=== PATIENT | female | born 1965 | race Caucasian/White ===

== ENCOUNTER 2020-01-24 00:56 | Inpatient (IN) | payer BC ==
[2020-01-24] VITALS (18 sets, daily range): BP systolic 102–118; BP diastolic 56–79
[~2020-01-24] VITALS: Ht 165.1 cm; Wt 85.6 kg
[2020-01-24] MEDS ORDERED: aspirin 81mg tab.chew PO ONE (01:00)
[2020-01-24] MEDS: amiodarone/D5 360MG/200ML BAG 200 ML IV SCH ×4 (01:06→16:13)
--- NOTE | 2020-01-24 01:08 | NUR ---
PT DESATED TO 80% RA, PT PLACED ON NRB AT 10 L. O2 SAT UP TP 100%
[2020-01-24 01:21] LABS: BASOPHILS # (AUTO) 0.1 X10'3 (0-0.2); LYMPHOCYTES # (AUTO) 0.9 X10'3 (1.1-4.8); MEAN PLATELET VOLUME 8.8 FL (7.4-10.4)
[2020-01-24 01:23] LABS: BASOPHILS % (AUTO) 0.4 % (0-1); EOSINOPHILS % (AUTO) 0.1 % (0-6); HEMATOCRIT 42.8 % (35.0-45.0); HEMOGLOBIN 14.6 g/dl (12.0-16.0); LYMPHOCYTES % (AUTO) 6.5 % (21-51); MEAN CORPUSCULAR HEMOGLOBIN 31.9 PG (27.0-31.0); MEAN CORPUSCULAR HGB CONC 34.1 g/dL (33.0-36.5); MEAN CORPUSCULAR VOLUME 93.6 FL (78-98); MONOCYTES # (AUTO) 0.5 X10'3 (0-0.9); MONOCYTES % (AUTO) 3.5 % (2-12); NEUTROPHILS # (AUTO) 12.9 X10'3 (1.8-7.7); NEUTROPHILS % (AUTO) 89.5 % (42-75); PLATELET COUNT 247 X10'3 (140-440); RED BLOOD COUNT 4.57 X10'6 (4.20-5.60); RED CELL DISTRIBUTION WIDTH 13.2 % (11.5-14.5); WHITE BLOOD COUNT 14.4 X10'3 (4.5-11.0)
[2020-01-24] MEDS ORDERED: aspirin 300mg supp.rect RC ONE (01:25)
--- NOTE | 2020-01-24 01:27 | NUR ---
DUDLEY JOHANSEN AT . PT IS NOW ALERT AND ANSWERING QUESTIONS AND FOLLOWING COMMANDS. PT DESCIBING CP STABBING IN MID CHEST TO BACK
[2020-01-24] MEDS ORDERED: iohexol 350MG/ML 100ml bottle IV ONE ×2 (01:37→13:01)
[2020-01-24 01:47] LABS: CLARITY,URINE CLEAR (Clear); COLOR,URINE YELLOW (Yellow); GLUCOSE, URINE 100 mg/dl (Neg); KETONES,URINE NEGATIVE (Neg); LEUKOCYTE ESTERASE ,URINE NEGATIVE (Neg); NITRITES, URINE NEGATIVE (Neg); OCCULT BLOOD,URINE LARGE (Neg); PROTEIN,URINE 100 mg/dl (Neg); UROBILINOGEN,URINE 0.2 E.U/dL (0.2-1.0)
[2020-01-24 01:51] LABS: UA COLLECTION TYPE CLN CATCH MIDSTREAM
[2020-01-24 01:52] LABS: BACTERIA,URINE FEW /HPF (Neg); SQUAMOUS EPITHELIAL CELL,UR FEW /LPF (FEW); WBC,URINE 0-4 /HPF (0-4)
[2020-01-24] MEDS ORDERED: morphine 4 MG/ML inj SYRINge IV ONE (02:00)
--- NOTE | 2020-01-24 02:00 | NUR ---
PT O2 SAT 100% ON 15 L. O2 DECREASED TO 10L. WILL CONTINUE TO WEAN
--- NOTE | 2020-01-24 02:23 | NUR ---
PT BACK FROM HEAD CT. PT RESTING AND STATES THAT PAIN IS MORE MANAGEABLE. PT O2 SAT 100% ON 10L, REDUCED O2 TO 8 L NRB. WILL CONTINUE TO WEAN
--- NOTE | 2020-01-24 03:05 | NUR ---
PT SATS AT 100% ON 8 L NRB. DECREASED 02 TO 5 L NC AND CURRENTLY STILL AT 100%. WILL CONTINUE TO MONITOR AND WEAN O2
[2020-01-24 03:19] LABS: URINE AMPHETAMINE SCREEN NEGATIVE (Neg); URINE BARBITUATE SCREEN NEGATIVE (Neg); URINE BENZODIAZEPINES SCREEN POSITIVE (Neg); URINE CANNABINOID SCREEN NEGATIVE (Neg); URINE COCAINE SCREEN NEGATIVE (Neg); URINE METHADONE SCREEN NEGATIVE (Neg); URINE OPIATE SCREEN NEGATIVE (Neg); URINE PHENCYCLIDINE SCREEN NEGATIVE (Neg)
[2020-01-24] MEDS ORDERED: heparin 25,000 UNIT/250ml bag 250 ML IV SCH ×2 (03:21→04:23)
[2020-01-24] MEDS ORDERED: heparin 10,000 units/1 ML INJ IV PRN ×2 (03:25→06:00)
[2020-01-24] MEDS ORDERED: heparin 10,000 units/1 ML INJ IV ONE ×2 (03:25)
--- NOTE | 2020-01-24 03:25 | NUR ---
AWAITING PTT RESULTS TO START HEPARIN MEDICATIONS Addendum: 01/24/20 at 0547 by BERENICE PER FRANCISCO FREIRE AT BS, HOLD HEPARIN UNTIL PTT VALUE
[2020-01-24 03:26] LABS: ISTAT CREATININE 0.9 mg/dL (0.6-1.1); ISTAT HGB 14.3 g/dl (12.0-16.0); ISTAT IONIZED CALCIUM 1.16 mmol/L (1.03-1.32); ISTAT K 3.2 mmol/L (3.5-5.1); POC BUN/CREATININE RATIO 13.3 (6.6-38.0)
--- NOTE | 2020-01-24 03:55 | NUR ---
daughter tootie martinor: phone [phone]
[2020-01-24 03:56] LABS: ALANINE AMINOTRANSFERASE 232 U/L (12-78); ALBUMIN 3.5 G/DL (3.4-5.0); ALBUMIN/GLOBULIN RATIO 1.2 (1.1-1.5); ALKALINE PHOSPHATASE 90 IU/L (46-116); ANION GAP 12 (8-16); ASPARTATE AMINO TRANSFERASE 291 U/L (10-37); BILIRUBIN,TOTAL 0.4 MG/DL (0.1-1.0); BLOOD UREA NITROGEN 13 MG/DL (7-18); BUN/CREATININE RATIO 13.4 (6.6-38.0); CALCIUM 8.1 MG/DL (8.5-10.1); CHLORIDE 103 MMOL/L (99-107); CREATININE 0.97 MG/DL (0.40-0.90); ETHANOL < 0.010 GM/DL (0.0-0.010); GLUCOSE 164 MG/DL (70-104); MAGNESIUM 1.7 MG/DL (1.5-2.4); POTASSIUM 3.2 MMOL/L (3.5-5.1); SODIUM 138 MMOL/L (135-145); TOTAL CARBON DIOXIDE 23.3 MMOL/L (24-32); TOTAL PROTEIN 6.5 G/DL (6.4-8.2); eGFR 59 ML/MIN
[2020-01-24] MEDS: normal saline 1000ml 1,000 ML IV SCH ×2 (04:23→17:56)
[2020-01-24] MEDS ORDERED: acetaminophen 650mg rectal suppository RC PRN (04:25)
[2020-01-24] MEDS ORDERED: nitroGLYCERIN 0.4mg SUBLingual tab SL PRN (04:25)
[2020-01-24] MEDS ORDERED: acetaminophen 325mg tablet PO PRN (04:25)
[2020-01-24] MEDS ORDERED: magnesium hydroxide 30ml (MOM) UD suspension PO PRN (04:25)
[2020-01-24] MEDS ORDERED: magnesium 4gm in 100ml NS 100 ML IV PRN (04:25)
[2020-01-24] MEDS ORDERED: magnesium 2GM in 50ml NS 50 ML IV PRN (04:25)
[2020-01-24] MEDS ORDERED: ipratropium/albuterol 3ml nebule NEB PRN (04:25)
--- NOTE | 2020-01-24 04:30 | NUR ---
CENTRAL LINE PLACED, PT TOLERATED WELL. PT REPEATING SAME QUESTIONS, SHORT TERM MEMORY IS LACKING. PT KNOWN BIRTHDATE, HOME ADDRESS, DAUGHTERS NAME.
--- NOTE | 2020-01-24 05:15 | NUR ---
PTT VALUE GREATER THAN 137. 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 HOLD HEPARIN, REDRAW PTT
[2020-01-24 05:20] LABS: HEMOGLOBIN A1C 6.3 % (4.5-6.2)
[2020-01-24 05:28] LABS: CHOL/HDL RATIO 4.5 (0.00-4.99); CHOLESTEROL 186 MG/DL (0-200); HDL CHOLESTEROL 41 MG/DL (35-60); LDL CHOLESTEROL 113 MG/DL (50-100); TRIGLYCERIDES 109 MG/DL (20-135)
--- NOTE | 2020-01-24 06:53 | NUR ---
REPORTED LACTIC 5.4 TO JULY TIRE MAINTENANCE TECHNICIAN.ORDERED TO REPEAT LACTIC.
--- NOTE | 2020-01-24 07:12 | NUR ---
DR. DE LA CRUZ AT BEDSIDE,ORDERED REPEAT EKG.
--- NOTE | 2020-01-24 07:13 | NUR ---
600 URINE OUT FROM CATHETER.
--- NOTE | 2020-01-24 07:16 | NUR ---
DR. DE LA CRUZ TALKING TO APPRENTICE COSMETOLOGIST ON THE PHONE.
[2020-01-24] MEDS: morphine 4 MG/ML inj SYRINge IV PRN (07:22)
[2020-01-24] MEDS: docusate sod 100mg capsule PO SCH ×2 (08:00→20:51)
[2020-01-24] MEDS: lisinopril 5mg tablet PO SCH (08:00)
[2020-01-24] MEDS: aspirin 81mg tab.chew PO SCH (08:00)
[2020-01-24] MEDS: carVEDilol 3.125mg tablet PO SCH ×2 (08:00→20:00)
--- NOTE | 2020-01-24 08:00 | NUR ---
Pt arrived from ED. Pt transferred to bed from [facility]. Pt oriented to room and function of call system. Pt is A&O, but repeats questions.
[2020-01-24] MEDS: pantoprazole 40 MG vial IV SCH (08:15)
--- NOTE | 2020-01-24 09:08 | NUR ---
Echo being done
[2020-01-24] MEDS ORDERED: iohexol 350 MG/1 ML 200ml bottle ONE (11:53)
[2020-01-24] MEDS ORDERED: fentaNYL/PF 50MCG/1 ML 2ML syringe ONE ×2 (11:53→12:51)
[2020-01-24] MEDS ORDERED: LIDOcaine 1% (10mg/ml)w/preservative injection 20ml MDV ONE (11:53)
[2020-01-24] MEDS ORDERED: heparin 1,000unit/ml 10ml vial 10 ML ONE (11:53)
[2020-01-24] MEDS ORDERED: midazolam 2 mg/2 ml injection ONE ×2 (11:53→12:51)
[2020-01-24] MEDS ORDERED: verapamil 2.5 mg/ml inj IV ONE (12:00)
[2020-01-24] MEDS ORDERED: nitroGLYCERIN-Tridil 50MG/D5W 250 ML IV ONE (12:00)
--- NOTE | 2020-01-24 12:19 | NUR ---
PT to laborer salvage
[2020-01-24] MEDS ORDERED: LEVO100T PO ×2 (12:24→12:38)
[2020-01-24] MEDS ORDERED: LOSA100T57 PO ×2 (12:26→12:38)
[2020-01-24] MEDS ORDERED: CYCL-394 PO ×2 (12:27→12:38)
[2020-01-24] MEDS ORDERED: BENZONATATE PO (12:32)
[2020-01-24] MEDS ORDERED: OXYC-150 PO ×2 (12:34→12:38)
--- NOTE | 2020-01-24 13:28 | NUR ---
pt still in manufacturing lab technician
[2020-01-24] MEDS ORDERED: ticagrelor 90mg tablet ONE (13:33)
--- NOTE | 2020-01-24 14:19 | NUR ---
pt returned from label operator. pt orders reviewed and faxed to pharmacy and lab.
--- NOTE | 2020-01-24 15:15 | NUR ---
Release of air from [employer] initiated
[2020-01-24] MEDS ORDERED: proCHLORperazine 10 MG/2 ml inj IV PRN (15:20)
[2020-01-24] MEDS ORDERED: HYDROcodone/acetaminophen 5mg/325mg tablet PO PRN (15:20)
[2020-01-24] MEDS ORDERED: OXAZEpam 15mg capsule PO PRN (15:20)
[2020-01-24 16:15] LABS: CHOL/HDL RATIO 3.4 (0.00-4.99); CHOLESTEROL 142 MG/DL (0-200); HDL CHOLESTEROL 42 MG/DL (35-60); LDL CHOLESTEROL 80 MG/DL (50-100); TRIGLYCERIDES 103 MG/DL (20-135)
[2020-01-24] MEDS: levoTHYROXINE 100mcg tablet PO SCH (16:29)
[2020-01-24 18:00] LABS: MAGNESIUM 2.4 MG/DL (1.5-2.4)
[2020-01-24 18:01] LABS: POTASSIUM 2.8 MMOL/L (3.5-5.1)
[2020-01-24] MEDS: potassium Cl 20mEq/100mL bag 100 ML IV PRN ×3 (18:10→23:03)
--- NOTE | 2020-01-24 18:19 | NUR ---
pt daughter is Felicita Ely, she can be reached at [phone]
[2020-01-24] MEDS: cyclobenzaprine 10mg tablet PO PRN (20:14)
[2020-01-24] MEDS: ticagrelor 90mg tablet PO SCH (20:50)
[2020-01-24] MEDS: HYDROcodone/acetaminophen 10/325mg tab PO PRN (20:53)
[2020-01-24] MEDS: ondansetron/PF 4mg/2ml inj IV PRN (21:24)
[2020-01-24] MEDS: morphine 2 MG/ML inj. syringe IV PRN (22:57)
[2020-01-25] VITALS (19 sets, daily range): BP systolic 92–110; BP diastolic 52–76
[2020-01-25] MEDS: potassium Cl 20mEq/100mL bag 100 ML IV PRN (00:15)
[2020-01-25] MEDS: acetaminophen 325mg tablet PO PRN ×3 (00:48→13:26)
[2020-01-25] MEDS: HYDROcodone/acetaminophen 10/325mg tab PO PRN ×2 (00:48→21:31)
[2020-01-25] MEDS: morphine 4 MG/ML inj SYRINge IV PRN (02:37)
[2020-01-25] MEDS: amiodarone/D5 360MG/200ML BAG 200 ML IV SCH (02:40)
[2020-01-25 03:24] LABS: BASOPHILS % (AUTO) 0.2 % (0-1); EOSINOPHILS % (AUTO) 0.1 % (0-6); HEMATOCRIT 36.9 % (35.0-45.0); HEMOGLOBIN 12.4 g/dl (12.0-16.0); LYMPHOCYTES # (AUTO) 1.3 X10'3 (1.1-4.8); LYMPHOCYTES % (AUTO) 10.3 % (21-51); MEAN CORPUSCULAR HEMOGLOBIN 31.1 PG (27.0-31.0); MEAN CORPUSCULAR HGB CONC 33.6 g/dL (33.0-36.5); MEAN CORPUSCULAR VOLUME 92.6 FL (78-98); MEAN PLATELET VOLUME 8.8 FL (7.4-10.4); MONOCYTES # (AUTO) 0.7 X10'3 (0-0.9); MONOCYTES % (AUTO) 5.7 % (2-12); NEUTROPHILS # (AUTO) 10.9 X10'3 (1.8-7.7); NEUTROPHILS % (AUTO) 83.7 % (42-75); PLATELET COUNT 256 X10'3 (140-440); RED BLOOD COUNT 3.98 X10'6 (4.20-5.60); RED CELL DISTRIBUTION WIDTH 13.2 % (11.5-14.5)
[2020-01-25 03:37] LABS: PARTIAL THROMBOPLASTIN TIME 27 SECONDS (22-32)
[2020-01-25 03:38] LABS: ALANINE AMINOTRANSFERASE 174 U/L (12-78); ALBUMIN 3.1 G/DL (3.4-5.0); ALBUMIN/GLOBULIN RATIO 1.1 (1.1-1.5); ALKALINE PHOSPHATASE 63 IU/L (46-116); ANION GAP 8 (8-16); ASPARTATE AMINO TRANSFERASE 233 U/L (10-37); BILIRUBIN,TOTAL 0.4 MG/DL (0.1-1.0); BLOOD UREA NITROGEN 9 MG/DL (7-18); BUN/CREATININE RATIO 10.6 (6.6-38.0); CALCIUM 7.8 MG/DL (8.5-10.1); CHLORIDE 104 MMOL/L (99-107); CREATININE 0.85 MG/DL (0.40-0.90); GLUCOSE 121 MG/DL (70-104); MAGNESIUM 2.2 MG/DL (1.5-2.4); PHOSPHORUS 1.9 MG/DL (2.3-4.5); POTASSIUM 3.8 MMOL/L (3.5-5.1); SODIUM 136 MMOL/L (135-145); TOTAL CARBON DIOXIDE 24.2 MMOL/L (24-32); eGFR 69 ML/MIN
[2020-01-25] MEDS: diphenhydrAMINE 25mg capsule PO PRN (05:56)
[2020-01-25 07:16] LABS: CLARITY,URINE SLIGHTLY CLOUDY (Clear); COLOR,URINE YELLOW (Yellow); GLUCOSE, URINE NEGATIVE (Neg); KETONES,URINE NEGATIVE (Neg); LEUKOCYTE ESTERASE ,URINE NEGATIVE (Neg); NITRITES, URINE NEGATIVE (Neg); OCCULT BLOOD,URINE MODERATE (Neg); PH,URINE 5.5 (4.8-8.0); PROTEIN,URINE 30 mg/dl (Neg); UROBILINOGEN,URINE 0.2 E.U/dL (0.2-1.0)
[2020-01-25 07:17] LABS: UA COLLECTION TYPE FOLEY CATH
[2020-01-25 07:23] LABS: COARSE GRANULAR CAST 0-3 /LPF (NEGATIVE)
[2020-01-25 07:24] LABS: FINE GRANULAR CAST 0-3 /LPF (NEGATIVE)
[2020-01-25 07:25] LABS: CELLULAR CAST 0-4 /LPF (NEGATIVE); MUCUS STRANDS FEW /LPF (Neg)
[2020-01-25 07:28] LABS: BACTERIA,URINE FEW /HPF (Neg); SQUAMOUS EPITHELIAL CELL,UR NONE SEEN /LPF (FEW); WBC,URINE 0-4 /HPF (0-4)
[2020-01-25] MEDS: pantoprazole 40 MG vial IV SCH (08:29)
[2020-01-25] MEDS: docusate sod 100mg capsule PO SCH ×2 (08:29→21:29)
[2020-01-25] MEDS: carVEDilol 3.125mg tablet PO SCH ×2 (08:30→20:00)
[2020-01-25] MEDS: aspirin 81mg tab.chew PO SCH (08:30)
[2020-01-25] MEDS: potassium Cl 20 mEq SR tablet PO PRN (08:30)
[2020-01-25] MEDS: levoTHYROXINE 100mcg tablet PO SCH (08:30)
[2020-01-25] MEDS: atorvastatin 10mg tablet PO SCH (08:30)
[2020-01-25] MEDS: lisinopril 5mg tablet PO SCH (08:32)
[2020-01-25] MEDS: ticagrelor 90mg tablet PO SCH ×2 (08:34→21:29)
[2020-01-25] MEDS: cyclobenzaprine 10mg tablet PO PRN (08:38)
[2020-01-25] MEDS: morphine 2 MG/ML inj. syringe IV PRN (08:44)
[2020-01-25] MEDS ORDERED: fluconazole 100mg tablet PO ONE (08:50)
[2020-01-25] MEDS ORDERED: sodium phosphate inj. 30 MMOL in dextrose 5%-water 250 ML IV PRN (09:30)
[2020-01-25] MEDS ORDERED: sodium phosphate inj. 15 MMOL in dextrose 5%-water 250 ML IV PRN (09:30)
[2020-01-25] MEDS: amiodarone 200mg tablet PO SCH ×2 (09:59→21:30)
[2020-01-25] MEDS: Neutra Phos packet PO PRN ×2 (09:59→21:30)
[2020-01-25] MEDS: vancomycin/NS 1 GM ADD-VANTAGE 250 ML IV SCH ×2 (11:03→23:39)
[2020-01-25] MEDS: piperacillin/tazo 4.5gm/100ml 100 ML IV SCH ×2 (12:14→17:16)
--- NOTE | 2020-01-25 14:55 | NUR ---
REPORT CALLED TO ALEXIA CARRASCO AT ACCE UNIT.
--- NOTE | 2020-01-25 15:20 | NUR ---
Patient transported out of ICU via wheel chiart to ACCE unit room 316. Chart and 2 bags of Zosyn given to ALEXIA Ernandez
--- NOTE | 2020-01-25 16:10 | NUR ---
assessment completed and this nurse agrees with the assessment completed this morning in ICU with no changes.
--- NOTE | 2020-01-25 18:25 | NUR ---
Patient in room MED 316. I have received report from Yuko, and had the opportunity to ask questions and assume patient care.
[2020-01-25] MEDS: lactobacillus rhamnosus 10,000 MMU CELLS/CAPSULE PO SCH (21:29)
--- NOTE | 2020-01-25 22:29 | NUR ---
Patient's blood sugar was 52. 2 8oz orange juices given to the patient. Will recheck her blood sugar in 30 minutes. The patient is alert, oriented x4. Not at any distress. Addendum: 01/25/20 at 2320 by Pratima Oneal RN Recheck her blood sugar. It is 125. Patient is alert, oriented x4. Not on any distress at this time.
--- NOTE | 2020-01-26 00:28 | NUR ---
Called pharmacist Amy, regarding the compatibility of zosyn and vancomycin running together (y-site) compatible. She confirmed that both are y site compatible.
[2020-01-26] MEDS: piperacillin/tazo 4.5gm/100ml 100 ML IV SCH ×3 (00:42→16:59)
[2020-01-26] MEDS: oxyCODONE/APAP 10/325mg tablet PO PRN ×4 (00:44→22:26)
[2020-01-26 02:00] VITALS: BP 95/54
[2020-01-26] MEDS: diphenhydrAMINE 25mg capsule PO PRN (03:42)
[2020-01-26] MEDS: cyclobenzaprine 10mg tablet PO PRN ×2 (03:42→12:40)
[2020-01-26 05:23] LABS: BASOPHILS % (AUTO) 0.2 % (0-1); EOSINOPHILS # (AUTO) 0.1 X10'3 (0-0.9); EOSINOPHILS % (AUTO) 1.6 % (0-6); HEMATOCRIT 29.9 % (35.0-45.0); HEMOGLOBIN 10.3 g/dl (12.0-16.0); LYMPHOCYTES # (AUTO) 1.5 X10'3 (1.1-4.8); MEAN CORPUSCULAR HEMOGLOBIN 32.1 PG (27.0-31.0); MEAN CORPUSCULAR HGB CONC 34.6 g/dL (33.0-36.5); MEAN PLATELET VOLUME 8.7 FL (7.4-10.4); MONOCYTES # (AUTO) 0.7 X10'3 (0-0.9); MONOCYTES % (AUTO) 8.5 % (2-12); NEUTROPHILS # (AUTO) 6.2 X10'3 (1.8-7.7); NEUTROPHILS % (AUTO) 72.7 % (42-75); PLATELET COUNT 192 X10'3 (140-440); RED BLOOD COUNT 3.21 X10'6 (4.20-5.60); WHITE BLOOD COUNT 8.5 X10'3 (4.5-11.0)
[2020-01-26 05:39] LABS: PARTIAL THROMBOPLASTIN TIME 30 SECONDS (22-32)
[2020-01-26 05:49] LABS: ALANINE AMINOTRANSFERASE 120 U/L (12-78); ALBUMIN 2.5 G/DL (3.4-5.0); ALBUMIN/GLOBULIN RATIO 0.9 (1.1-1.5); ALKALINE PHOSPHATASE 59 IU/L (46-116); ANION GAP 6 (8-16); ASPARTATE AMINO TRANSFERASE 109 U/L (10-37); BILIRUBIN,TOTAL 0.8 MG/DL (0.1-1.0); BLOOD UREA NITROGEN 9 MG/DL (7-18); CALCIUM 7.6 MG/DL (8.5-10.1); CHLORIDE 104 MMOL/L (99-107); CREATININE 0.82 MG/DL (0.40-0.90); GLUCOSE 120 MG/DL (70-104); MAGNESIUM 2.2 MG/DL (1.5-2.4); POTASSIUM 3.4 MMOL/L (3.5-5.1); SODIUM 136 MMOL/L (135-145); TOTAL CARBON DIOXIDE 26.5 MMOL/L (24-32); TOTAL PROTEIN 5.3 G/DL (6.4-8.2); eGFR 72 ML/MIN
[2020-01-26 06:00] VITALS: BP 87/52
--- NOTE | 2020-01-26 06:26 | NUR ---
Problems reprioritized. Patient report given Yuko, questions answered & plan of care reviewed with .
--- NOTE | 2020-01-26 06:30 | NUR ---
Patient in room MED 316. I have received report from Pratima HALE and had the opportunity to ask questions and assume patient care.
[2020-01-26] MEDS: levoTHYROXINE 100mcg tablet PO SCH (08:24)
[2020-01-26] MEDS: amiodarone 200mg tablet PO SCH ×2 (08:24→22:26)
[2020-01-26] MEDS: atorvastatin 10mg tablet PO SCH (08:25)
[2020-01-26] MEDS: ticagrelor 90mg tablet PO SCH ×2 (08:25→22:27)
[2020-01-26] MEDS: carVEDilol 3.125mg tablet PO SCH ×2 (08:25→22:26)
[2020-01-26] MEDS: docusate sod 100mg capsule PO SCH ×2 (08:25→22:25)
[2020-01-26] MEDS: lactobacillus rhamnosus 10,000 MMU CELLS/CAPSULE PO SCH ×2 (08:25→22:25)
[2020-01-26] MEDS: aspirin 81mg tab.chew PO SCH (08:25)
[2020-01-26] MEDS: Neutra Phos packet PO PRN (08:26)
[2020-01-26] MEDS: lisinopril 5mg tablet PO SCH (08:27)
[2020-01-26] MEDS: pantoprazole 40mg Tablet.DR PO SCH (08:38)
[2020-01-26 10:00] VITALS: BP 114/54
[2020-01-26] MEDS: vancomycin/NS 1 GM ADD-VANTAGE 250 ML IV SCH ×2 (11:41→23:38)
[2020-01-26] MEDS: methyl salicylate/menthol cream 57gm TP SCH ×2 (12:40→22:27)
[2020-01-26 14:00] VITALS: BP 97/66
--- NOTE | 2020-01-26 15:54 | NUR ---
Called placed to Dr Delgadillo about Thoracic X Ray that was done on the pt and the report stated possible pleural effusion. Dr Delgadillo stated he would look into it.
[2020-01-26 18:00] VITALS: BP 95/68
--- NOTE | 2020-01-26 18:00 | NUR ---
Patient in room MED 316. I have received report from Rose HALE and had the opportunity to ask questions and assume patient care.
[2020-01-26 22:00] VITALS: BP 134/72
[2020-01-26] MEDS ORDERED: VANCOMYCIN LEVEL IV ONE (22:30)
[2020-01-27] MEDS: piperacillin/tazo 4.5gm/100ml 100 ML IV SCH ×3 (01:20→17:29)
[2020-01-27 02:00] VITALS: BP 123/64
[2020-01-27] MEDS: ondansetron/PF 4mg/2ml inj IV PRN (02:52)
--- NOTE | 2020-01-27 03:00 | NUR ---
PAGER ID: [phone] MESSAGE: Jhoana, RM 316. DX cardiac arrest. Had two stents placed on 01/23. Doing well. Pt is complaining of nasal congestion. Was asking for nasal spray. Erich ext [phone].
[2020-01-27 03:10] LABS: BASOPHILS % (AUTO) 0.3 % (0-1); EOSINOPHILS # (AUTO) 0.2 X10'3 (0-0.9); EOSINOPHILS % (AUTO) 1.9 % (0-6); HEMATOCRIT 33.1 % (35.0-45.0); HEMOGLOBIN 11.4 g/dl (12.0-16.0); LYMPHOCYTES # (AUTO) 1.6 X10'3 (1.1-4.8); LYMPHOCYTES % (AUTO) 17.1 % (21-51); MEAN CORPUSCULAR HEMOGLOBIN 32.1 PG (27.0-31.0); MEAN CORPUSCULAR HGB CONC 34.6 g/dL (33.0-36.5); MEAN CORPUSCULAR VOLUME 92.8 FL (78-98); MEAN PLATELET VOLUME 8.9 FL (7.4-10.4); MONOCYTES # (AUTO) 0.6 X10'3 (0-0.9); MONOCYTES % (AUTO) 6.8 % (2-12); NEUTROPHILS % (AUTO) 73.9 % (42-75); PLATELET COUNT 238 X10'3 (140-440); RED BLOOD COUNT 3.57 X10'6 (4.20-5.60); RED CELL DISTRIBUTION WIDTH 13.2 % (11.5-14.5); WHITE BLOOD COUNT 9.4 X10'3 (4.5-11.0)
[2020-01-27 03:28] LABS: PARTIAL THROMBOPLASTIN TIME 28 SECONDS (22-32)
[2020-01-27 03:37] LABS: ALANINE AMINOTRANSFERASE 109 U/L (12-78); ALBUMIN 2.9 G/DL (3.4-5.0); ALBUMIN/GLOBULIN RATIO 0.9 (1.1-1.5); ALKALINE PHOSPHATASE 83 IU/L (46-116); ANION GAP 5 (8-16); ASPARTATE AMINO TRANSFERASE 81 U/L (10-37); BILIRUBIN,TOTAL 0.6 MG/DL (0.1-1.0); BLOOD UREA NITROGEN 11 MG/DL (7-18); BUN/CREATININE RATIO 11.7 (6.6-38.0); CALCIUM 8.4 MG/DL (8.5-10.1); CHLORIDE 102 MMOL/L (99-107); CREATININE 0.94 MG/DL (0.40-0.90); GLUCOSE 107 MG/DL (70-104); MAGNESIUM 2.1 MG/DL (1.5-2.4); PHOSPHORUS 1.8 MG/DL (2.3-4.5); POTASSIUM 3.4 MMOL/L (3.5-5.1); SODIUM 135 MMOL/L (135-145); TOTAL CARBON DIOXIDE 27.7 MMOL/L (24-32); TOTAL PROTEIN 6.3 G/DL (6.4-8.2); eGFR 62 ML/MIN
[2020-01-27 06:00] VITALS: BP 107/71
--- NOTE | 2020-01-27 06:39 | NUR ---
Problems reprioritized. Patient report given, questions answered & plan of care reviewed with Rose HALE.
[2020-01-27] MEDS: carVEDilol 3.125mg tablet PO SCH ×2 (08:00→20:58)
[2020-01-27] MEDS: lactobacillus rhamnosus 10,000 MMU CELLS/CAPSULE PO SCH ×2 (09:14→20:58)
[2020-01-27] MEDS: atorvastatin 10mg tablet PO SCH (09:14)
[2020-01-27] MEDS: pantoprazole 40mg Tablet.DR PO SCH (09:14)
[2020-01-27] MEDS: docusate sod 100mg capsule PO SCH ×2 (09:14→20:57)
[2020-01-27] MEDS: oxyCODONE/APAP 10/325mg tablet PO PRN ×3 (09:15→23:18)
[2020-01-27] MEDS: levoTHYROXINE 100mcg tablet PO SCH (09:23)
[2020-01-27] MEDS: methyl salicylate/menthol cream 57gm TP SCH ×3 (09:23→20:57)
[2020-01-27] MEDS: amiodarone 200mg tablet PO SCH ×2 (09:23→20:57)
[2020-01-27] MEDS: lisinopril 5mg tablet PO SCH (09:25)
[2020-01-27] MEDS: aspirin 81mg tab.chew PO SCH (09:53)
[2020-01-27 10:00] VITALS: BP 103/50
[2020-01-27] MEDS: ticagrelor 90mg tablet PO SCH ×2 (13:22→20:57)
[2020-01-27] MEDS: VANCOMYCIN 1,500MG inj. 1,500 MG in normal saline 500ml IV soln 300 ML IV SCH (13:24)
[2020-01-27 14:00] VITALS: BP 103/56
[2020-01-27] MEDS: cyclobenzaprine 10mg tablet PO PRN (16:14)
[2020-01-27] MEDS ORDERED: magnesium Cl slow-release 64mg tablet PO PRN (16:40)
[2020-01-27] MEDS ORDERED: potassium Cl 20 mEq SR tablet PO PRN ×2 (16:40)
[2020-01-27] MEDS ORDERED: potassium CL 10mEq/100ml bag 100 ML IV PRN (16:40)
[2020-01-27] MEDS ORDERED: magnesium 4gm in 100ml NS 100 ML IV PRN (16:40)
[2020-01-27] MEDS: potassium Cl 20 mEq SR tablet PO PRN (17:22)
[2020-01-27 18:00] VITALS: BP 105/71
--- NOTE | 2020-01-27 18:00 | NUR ---
Patient in room MED 316. I have received report from Rose HALE and had the opportunity to ask questions and assume patient care.
--- NOTE | 2020-01-27 18:38 | NUR ---
Problems reprioritized. Patient report given, questions answered & plan of care reviewed with Erich RN.
[2020-01-27 22:00] VITALS: BP 113/61
[2020-01-28] MEDS: VANCOMYCIN 1,500MG inj. 1,500 MG in normal saline 500ml IV soln 300 ML IV SCH (00:03)
[2020-01-28 02:00] VITALS: BP 103/55
[2020-01-28] MEDS: piperacillin/tazo 4.5gm/100ml 100 ML IV SCH ×2 (02:09→07:48)
[2020-01-28 06:00] VITALS: BP 113/74
[2020-01-28 06:06] LABS: BASOPHILS % (AUTO) 0.5 % (0-1); EOSINOPHILS # (AUTO) 0.3 X10'3 (0-0.9); EOSINOPHILS % (AUTO) 4.4 % (0-6); HEMATOCRIT 29.9 % (35.0-45.0); HEMOGLOBIN 10.2 g/dl (12.0-16.0); LYMPHOCYTES # (AUTO) 1.5 X10'3 (1.1-4.8); MEAN CORPUSCULAR HEMOGLOBIN 31.7 PG (27.0-31.0); MEAN CORPUSCULAR HGB CONC 34.1 g/dL (33.0-36.5); MEAN PLATELET VOLUME 8.4 FL (7.4-10.4); MONOCYTES # (AUTO) 0.6 X10'3 (0-0.9); MONOCYTES % (AUTO) 8.7 % (2-12); NEUTROPHILS # (AUTO) 4.1 X10'3 (1.8-7.7); NEUTROPHILS % (AUTO) 63.4 % (42-75); PLATELET COUNT 243 X10'3 (140-440); RED BLOOD COUNT 3.21 X10'6 (4.20-5.60); WHITE BLOOD COUNT 6.5 X10'3 (4.5-11.0)
--- NOTE | 2020-01-28 06:16 | NUR ---
Problems reprioritized. Patient report given, questions answered & plan of care reviewed with Jennyfer HALE.
[2020-01-28 06:21] LABS: ALANINE AMINOTRANSFERASE 84 U/L (12-78); ALBUMIN 2.6 G/DL (3.4-5.0); ALBUMIN/GLOBULIN RATIO 0.9 (1.1-1.5); ALKALINE PHOSPHATASE 99 IU/L (46-116); ANION GAP 6 (8-16); ASPARTATE AMINO TRANSFERASE 53 U/L (10-37); BILIRUBIN,TOTAL 0.5 MG/DL (0.1-1.0); BLOOD UREA NITROGEN 11 MG/DL (7-18); BUN/CREATININE RATIO 12.1 (6.6-38.0); CALCIUM 8.6 MG/DL (8.5-10.1); CHLORIDE 104 MMOL/L (99-107); CREATININE 0.91 MG/DL (0.40-0.90); GLUCOSE 98 MG/DL (70-104); POTASSIUM 3.8 MMOL/L (3.5-5.1); SODIUM 136 MMOL/L (135-145); TOTAL CARBON DIOXIDE 26.5 MMOL/L (24-32); TOTAL PROTEIN 5.6 G/DL (6.4-8.2); eGFR 64 ML/MIN
[2020-01-28] MEDS: aspirin 81mg tab.chew PO SCH (07:42)
[2020-01-28] MEDS: atorvastatin 10mg tablet PO SCH (07:42)
[2020-01-28] MEDS: amiodarone 200mg tablet PO SCH (07:42)
[2020-01-28] MEDS: lactobacillus rhamnosus 10,000 MMU CELLS/CAPSULE PO SCH (07:42)
[2020-01-28] MEDS: oxyCODONE/APAP 10/325mg tablet PO PRN (07:44)
[2020-01-28] MEDS: ticagrelor 90mg tablet PO SCH (07:45)
[2020-01-28] MEDS: levoTHYROXINE 100mcg tablet PO SCH (07:45)
[2020-01-28] MEDS: lisinopril 5mg tablet PO SCH (07:45)
[2020-01-28] MEDS: carVEDilol 3.125mg tablet PO SCH (07:45)
[2020-01-28] MEDS: pantoprazole 40mg Tablet.DR PO SCH (07:45)
[2020-01-28] MEDS: docusate sod 100mg capsule PO SCH (07:46)
[2020-01-28] MEDS: methyl salicylate/menthol cream 57gm TP SCH ×2 (07:58→13:00)
--- NOTE | 2020-01-28 09:53 | NUR ---
Initial: Pt admit s/p cardiac arrest and NSTEMI with CPR. Patient on a heart healthy diet with average 50% PO intake however up to 75-100% PO intake since lunch yesterday meeting nutrient needs. LBM 01/22, documented as constipated. Pt receiving routine bowel care and with PRN bowel care available. D/w dietary to send prunes and prune juice with next meal to assist with bowel regularity. Will continue to follow and monitor need for further nutrition intervention. Recommendations: 1) Continue heart healthy diet 2) Routine bowel care 3) Scaled weights per rx Addendum: 01/28/20 at [address] Amended: Links added.
[2020-01-28 10:00] VITALS: BP 99/51
[2020-01-28] MEDS ORDERED: COR3.125T PO (10:08)
[2020-01-28] MEDS ORDERED: LISI-642 PO (10:08)
[2020-01-28] MEDS ORDERED: ATOR10TA PO (10:08)
[2020-01-28] MEDS ORDERED: TICA90TA PO (10:08)
[2020-01-28] MEDS ORDERED: AMIO200T61 PO (10:43)
[2020-01-28] MEDS ORDERED: ASPI-1265 PO (10:43)
[2020-01-28 14:00] VITALS: BP 130/86
--- NOTE | 2020-01-28 18:30 | NUR ---
Patient in room MED 316. I have received report from Traci, and had the opportunity to ask questions and assume patient care.
--- NOTE | 2020-01-28 19:37 | NUR ---
Patient is DC, waiting for her daughter to pick her up. Refused to put the tele monitoring on, and refuse to take her 200 scheduled medication. Patient is alert, oriented x4. Dressed up and ready to go home. Autumn, the charge nurse is aware of the issue.
--- NOTE | 2020-01-28 20:52 | NUR ---
The patient left the floor at 2014. The IV taken out. All Discharge paper handed to patient and explained. Informed her to follow up with her plastic surgery nurse as well as primary care doctor as indicated. Patient was alert, oriented x4. Not at any distress.
[2020-01-29] MEDS ORDERED: VANCOMYCIN LEVEL IV ONE (00:30)
== END 2020-01-28 20:15 | disposition home or self-care (01) | DRG 246 ==
LOC: ER 00:57 → EDBD 00:57 → ED HOLD 04:23 → CICU 2S 07:42 → MED 3N 01-25 15:15
PROVIDERS: ATTEND Internal Medicine
PROC: 5A12012 Performance of Cardiac Output, Single, Manual (ICD-10-PCS; principal; 2020-01-24)
PROC: 4A023N7 Measurement of Cardiac Sampling and Pressure, Left Heart, Percutaneous Approach (ICD-10-PCS; 2020-01-24)
PROC: B2111ZZ Fluoroscopy of Multiple Coronary Arteries using Low Osmolar Contrast (ICD-10-PCS; 2020-01-24)
PROC: B32T1ZZ Computerized Tomography (CT Scan) of Left Pulmonary Artery using Low Osmolar Contrast (ICD-10-PCS; 2020-01-24)
PROC: B32S1ZZ Computerized Tomography (CT Scan) of Right Pulmonary Artery using Low Osmolar Contrast (ICD-10-PCS; 2020-01-24)
PROC: 027034Z Dilation of Coronary Artery, One Artery with Drug-eluting Intraluminal Device, Percutaneous Approach (ICD-10-PCS; 2020-01-24)
DX: I21.4 Non-ST elevation (NSTEMI) myocardial infarction (principal); I46.9 Cardiac arrest, cause unspecified; E03.9 Hypothyroidism, unspecified; E78.00 Pure hypercholesterolemia, unspecified; E78.5 Hyperlipidemia, unspecified; E87.6 Hypokalemia; I10 Essential (primary) hypertension; M54.9 Dorsalgia, unspecified; I25.10 Atherosclerotic heart disease of native coronary artery without angina pectoris; Z79.82 Long term (current) use of aspirin; Z79.890 Hormone replacement therapy; Z79.899 Other long term (current) drug therapy; Z20.828 Contact with and (suspected) exposure to other viral communicable diseases
CPT/HCPCS: 36556; 93306; 96374; 99291; C9600; 36415; 70450; 71045; 71275; 72074; 74175; 80047; 80053; 80061; 80202; 80305; 80320; 81001; 82948; 83036; 83605; 83735; 83880; 84100; 84132; 84145; 84443; 84484; 85025; 85347; 85610; 85730; 86885; 86900; 86901; 87040; 87081; 87635; 93005; 94760; 97116; 97161; 97530; C9113; C9601; C9606; G0378; J1644; J2001; J2250; J2270; J2405; J2543; J3010; J3370; J3475; J3480; J3490; J7030; J7040; Q0163; Q9967

== ENCOUNTER 2020-02-06 11:04 | Emergency (ER) | payer BC ==
[~2020-02-06] VITALS: Ht 165.1 cm; Wt 77.3 kg
[~2020-02-06 11:04] MED LIST: AMIO200T61 PO; ASPI-1265 PO; ATOR10TA PO; COR3.125T PO; CYCL-394 PO; LEVO100T PO; LISI-642 PO; LOSA100T57 PO; OXYC-150 PO; TICA90TA PO
[2020-02-06 11:49] LABS: BASOPHILS # (AUTO) 0.1 X10'3 (0-0.2); BASOPHILS % (AUTO) 0.8 % (0-1); EOSINOPHILS # (AUTO) 0.2 X10'3 (0-0.9); HEMATOCRIT 39.2 % (35.0-45.0); HEMOGLOBIN 13.4 g/dl (12.0-16.0); LYMPHOCYTES # (AUTO) 1.2 X10'3 (1.1-4.8); LYMPHOCYTES % (AUTO) 15.4 % (21-51); MEAN CORPUSCULAR HEMOGLOBIN 31.5 PG (27.0-31.0); MEAN CORPUSCULAR HGB CONC 34.1 g/dL (33.0-36.5); MEAN CORPUSCULAR VOLUME 92.2 FL (78-98); MEAN PLATELET VOLUME 8.3 FL (7.4-10.4); MONOCYTES # (AUTO) 0.6 X10'3 (0-0.9); MONOCYTES % (AUTO) 7.2 % (2-12); NEUTROPHILS % (AUTO) 74.6 % (42-75); PLATELET COUNT 492 X10'3 (140-440); RED BLOOD COUNT 4.25 X10'6 (4.20-5.60)
[2020-02-06 11:59] LABS: ALANINE AMINOTRANSFERASE 50 U/L (12-78); ALBUMIN 3.8 G/DL (3.4-5.0); ALBUMIN/GLOBULIN RATIO 1.1 (1.1-1.5); ALKALINE PHOSPHATASE 101 IU/L (46-116); ANION GAP 10 (8-16); ASPARTATE AMINO TRANSFERASE 21 U/L (10-37); BILIRUBIN,TOTAL 0.3 MG/DL (0.1-1.0); BLOOD UREA NITROGEN 13 MG/DL (7-18); BUN/CREATININE RATIO 14.4 (6.6-38.0); CALCIUM 9.4 MG/DL (8.5-10.1); CHLORIDE 105 MMOL/L (99-107); GLUCOSE 112 MG/DL (70-104); POTASSIUM 3.7 MMOL/L (3.5-5.1); SODIUM 138 MMOL/L (135-145); TOTAL CARBON DIOXIDE 22.6 MMOL/L (24-32); TOTAL PROTEIN 7.3 G/DL (6.4-8.2); eGFR 65 ML/MIN
[2020-02-06] MEDS ORDERED: iohexol 350MG/ML 100ml bottle IV ONE (12:06)
--- NOTE | 2020-02-06 12:11 | NUR ---
to ct scan via wheelchair in stable condition accompanied by transformation architect
[2020-02-06 13:44] VITALS: BP 128/75
== END 2020-02-06 14:15 | disposition home or self-care (01) ==
LOC: ER 11:05
DX: R07.89 Other chest pain (principal); R06.02 Shortness of breath; I25.10 Atherosclerotic heart disease of native coronary artery without angina pectoris; E78.00 Pure hypercholesterolemia, unspecified; I10 Essential (primary) hypertension; I25.2 Old myocardial infarction; Z98.890 Other specified postprocedural states; Z79.82 Long term (current) use of aspirin; Z79.899 Other long term (current) drug therapy
CPT/HCPCS: 36415; 71045; 71275; 74175; 80053; 83880; 84484; 85025; 93005; 99285; Q9967

== ENCOUNTER 2020-03-14 15:10 | Inpatient (IN) | payer BC ==
[~2020-03-14] VITALS: Ht 165.1 cm; Wt 73.2 kg
[2020-03-14 16:19] LABS: BASOPHILS # (AUTO) 0.1 X10'3 (0-0.2); BASOPHILS % (AUTO) 1.2 % (0-1); EOSINOPHILS # (AUTO) 0.2 X10'3 (0-0.9); EOSINOPHILS % (AUTO) 5.2 % (0-6); HEMATOCRIT 40.5 % (35.0-45.0); HEMOGLOBIN 13.8 g/dl (12.0-16.0); LYMPHOCYTES % (AUTO) 20.9 % (21-51); MEAN CORPUSCULAR HEMOGLOBIN 31.6 PG (27.0-31.0); MEAN CORPUSCULAR HGB CONC 34.1 g/dL (33.0-36.5); MEAN CORPUSCULAR VOLUME 92.8 FL (78-98); MEAN PLATELET VOLUME 8.9 FL (7.4-10.4); MONOCYTES # (AUTO) 0.4 X10'3 (0-0.9); MONOCYTES % (AUTO) 8.6 % (2-12); NEUTROPHILS # (AUTO) 2.9 X10'3 (1.8-7.7); NEUTROPHILS % (AUTO) 64.1 % (42-75); PLATELET COUNT 271 X10'3 (140-440); RED BLOOD COUNT 4.37 X10'6 (4.20-5.60); RED CELL DISTRIBUTION WIDTH 13.7 % (11.5-14.5); WHITE BLOOD COUNT 4.6 X10'3 (4.5-11.0)
[2020-03-14] MEDS ORDERED: aspirin 81mg tablet.DR PO ONE (16:20)
[2020-03-14 16:42] LABS: ALANINE AMINOTRANSFERASE 37 U/L (12-78); ALBUMIN 4.1 G/DL (3.4-5.0); ALBUMIN/GLOBULIN RATIO 1.5 (1.1-1.5); ALKALINE PHOSPHATASE 59 IU/L (46-116); ANION GAP 6 (8-16); ASPARTATE AMINO TRANSFERASE 19 U/L (10-37); BILIRUBIN,TOTAL 0.4 MG/DL (0.1-1.0); BLOOD UREA NITROGEN 14 MG/DL (7-18); BUN/CREATININE RATIO 16.3 (6.6-38.0); CHLORIDE 107 MMOL/L (99-107); CREATININE 0.86 MG/DL (0.40-0.90); GLUCOSE 110 MG/DL (70-104); POTASSIUM 3.9 MMOL/L (3.5-5.1); SODIUM 141 MMOL/L (135-145); TOTAL CARBON DIOXIDE 28.1 MMOL/L (24-32); TOTAL PROTEIN 6.9 G/DL (6.4-8.2); eGFR 68 ML/MIN
[2020-03-14] MEDS ORDERED: iohexol 350MG/ML 100ml bottle IV ONE (16:48)
--- NOTE | 2020-03-14 17:12 | NUR ---
p[t resting comfortably she just came back to her room from CT
[2020-03-14] MEDS ORDERED: SIMV10TA2 PO (18:35)
[2020-03-14] MEDS ORDERED: CLOP75TA15 PO (18:35)
[2020-03-14] MEDS ORDERED: CARV3.122 PO (19:22)
[2020-03-14] MEDS ORDERED: AMIO200T61 PO (19:22)
[2020-03-14] MEDS ORDERED: ASPI81TA52 PO (19:22)
[2020-03-14] MEDS ORDERED: magnesium 2GM in 50ml NS 50 ML IV PRN (20:10)
[2020-03-14] MEDS ORDERED: acetaminophen 325mg tablet PO PRN (20:10)
[2020-03-14] MEDS ORDERED: morphine 2 MG/ML inj. syringe IV PRN (20:10)
[2020-03-14] MEDS ORDERED: metoprolol tartrate 1mg/ml inj IV PRN (20:10)
[2020-03-14] MEDS ORDERED: potassium CL 10mEq/100ml bag 100 ML IV PRN ×2 (20:10)
[2020-03-14] MEDS ORDERED: magnesium hydroxide 30ml (MOM) UD suspension PO PRN (20:10)
[2020-03-14] MEDS ORDERED: regadenoson 0.4mg/5ml syringe IV PRN (20:10)
[2020-03-14] MEDS ORDERED: aminophylline 250mg/10ml inj. IV PRN (20:10)
[2020-03-14] MEDS ORDERED: potassium Cl 20 mEq SR tablet PO PRN ×2 (20:10)
[2020-03-14] MEDS ORDERED: magnesium Cl slow-release 64mg tablet PO PRN (20:10)
[2020-03-14] MEDS ORDERED: mag hydrox/Alum hydrox/simeth 30ml oral suspension PO PRN (20:10)
[2020-03-14] MEDS ORDERED: ondansetron/PF 4mg/2ml inj IV PRN (20:10)
[2020-03-14] MEDS: pantoprazole 40mg Tablet.DR PO SCH (20:10)
[2020-03-14] MEDS ORDERED: nitroGLYCERIN 0.4mg SUBLingual tab SL PRN (20:10)
[2020-03-14] MEDS ORDERED: magnesium 4gm in 100ml NS 100 ML IV PRN (20:10)
[2020-03-14] MEDS ORDERED: temazepam 15mg capsule PO PRN (21:00)
--- NOTE | 2020-03-14 21:25 | NUR ---
Patient in room ED 10. I have received report from Pedro HALE and had the opportunity to ask questions.
[2020-03-14 21:45] VITALS: BP 122/77
--- NOTE | 2020-03-14 21:45 | NUR ---
Patient arrived to unit from ED via wheelchair and ambulated self into bed. Patient A&Ox4 and in no apparent distress. Patient hooked up to telemetry monitoring, MRSA nasal swab performed, 2 RN skin check performed. Vitals stable: BP 122/77, HR 60, SpO2 97% on room air, respiratory rate 14, and temperature 98.3. Will continue to monitor.
[2020-03-15] VITALS (12 sets, daily range): BP systolic 109–136; BP diastolic 58–86
[2020-03-15] MEDS: normal saline 1000ml 1,000 ML IV SCH ×3 (00:46→16:06)
[2020-03-15] MEDS: HYDROcodone/acetaminophen 5mg/325mg tablet PO PRN ×3 (03:09→19:51)
[2020-03-15 04:10] LABS: ALBUMIN 3.7 G/DL (3.4-5.0); ANION GAP 10 (8-16); BLOOD UREA NITROGEN 12 MG/DL (7-18); BUN/CREATININE RATIO 15.4 (6.6-38.0); CALCIUM 9.2 MG/DL (8.5-10.1); CHLORIDE 108 MMOL/L (99-107); CREATININE 0.78 MG/DL (0.40-0.90); GLUCOSE 99 MG/DL (70-104); POTASSIUM 3.6 MMOL/L (3.5-5.1); SODIUM 142 MMOL/L (135-145); TOTAL CARBON DIOXIDE 23.6 MMOL/L (24-32); eGFR 76 ML/MIN
[2020-03-15 05:01] LABS: BASOPHILS % (AUTO) 0.4 % (0-1); EOSINOPHILS # (AUTO) 0.3 X10'3 (0-0.9); EOSINOPHILS % (AUTO) 4.3 % (0-6); HEMATOCRIT 38.7 % (35.0-45.0); LYMPHOCYTES # (AUTO) 1.7 X10'3 (1.1-4.8); LYMPHOCYTES % (AUTO) 28.5 % (21-51); MEAN CORPUSCULAR HEMOGLOBIN 31.3 PG (27.0-31.0); MEAN CORPUSCULAR HGB CONC 33.5 g/dL (33.0-36.5); MEAN CORPUSCULAR VOLUME 93.6 FL (78-98); MONOCYTES # (AUTO) 0.6 X10'3 (0-0.9); MONOCYTES % (AUTO) 9.5 % (2-12); NEUTROPHILS # (AUTO) 3.4 X10'3 (1.8-7.7); NEUTROPHILS % (AUTO) 57.3 % (42-75); PLATELET COUNT 258 X10'3 (140-440); RED BLOOD COUNT 4.14 X10'6 (4.20-5.60); RED CELL DISTRIBUTION WIDTH 13.3 % (11.5-14.5)
--- NOTE | 2020-03-15 05:04 | NUR ---
Jessica I have reviewed and agree with all interventions, assessments performed and documented by Wei HALE. Jessica Medication Administration: For this medication-pass time frame, all medication were reviewed, dispensed, administered and documented per hospital policy by Wei HALE.
--- NOTE | 2020-03-15 06:00 | NUR ---
Patient in room PCU 3012. I have received report from Dafne HALE and Wei HALE and had the opportunity to ask questions and assume patient care.
--- NOTE | 2020-03-15 06:08 | NUR ---
Problems reprioritized. Patient report given, questions answered & plan of care reviewed with Madeline HALE.
[2020-03-15] MEDS: K and/or MAG REPLACEMENT MC SCH ×2 (08:00→20:00)
[2020-03-15] MEDS: carVEDilol 3.125mg tablet PO SCH ×2 (11:00→19:35)
[2020-03-15] MEDS: pantoprazole 40mg Tablet.DR PO SCH (11:00)
[2020-03-15] MEDS: amiodarone 200mg tablet PO SCH ×2 (11:00→19:35)
[2020-03-15] MEDS: losartan 50mg tablet PO SCH (11:00)
[2020-03-15] MEDS: clopidogrel 75mg tablet PO SCH (11:01)
[2020-03-15] MEDS: levoTHYROXINE 100mcg tablet PO SCH (11:01)
[2020-03-15] MEDS: heparin, porcine 5000 units/ml vial SQ SCH ×2 (11:01→19:37)
[2020-03-15] MEDS: atorvastatin 10mg tablet PO SCH (11:02)
[2020-03-15] MEDS: aspirin 81mg tablet.DR PO SCH (11:02)
--- NOTE | 2020-03-15 18:00 | NUR ---
Problems reprioritized. Patient report given, questions answered & plan of care reviewed with Ashlie HALE.
--- NOTE | 2020-03-15 18:41 | NUR ---
Patient in room PCU 3012. I have received report from Cheryl HALE and had the opportunity to ask questions and assume patient care.
[2020-03-16] VITALS (10 sets, daily range): BP systolic 110–143; BP diastolic 58–83
[2020-03-16] MEDS: normal saline 1000ml 1,000 ML IV SCH ×2 (00:56→11:22)
[2020-03-16] MEDS: HYDROcodone/acetaminophen 5mg/325mg tablet PO PRN ×2 (00:57→08:08)
[2020-03-16] MEDS ORDERED: LIDOcaine/PRILOcaine 5gm cream TP ONE (02:25)
[2020-03-16 04:54] LABS: ALBUMIN 3.6 G/DL (3.4-5.0); ANION GAP 8 (8-16); BLOOD UREA NITROGEN 9 MG/DL (7-18); BUN/CREATININE RATIO 10.7 (6.6-38.0); CALCIUM 8.4 MG/DL (8.5-10.1); CHLORIDE 109 MMOL/L (99-107); CREATININE 0.84 MG/DL (0.40-0.90); GLUCOSE 93 MG/DL (70-104); MAGNESIUM 1.9 MG/DL (1.5-2.4); POTASSIUM 3.5 MMOL/L (3.5-5.1); SODIUM 141 MMOL/L (135-145); TOTAL CARBON DIOXIDE 24.2 MMOL/L (24-32); eGFR 70 ML/MIN
[2020-03-16 05:02] LABS: BASOPHILS % (AUTO) 0.6 % (0-1); EOSINOPHILS # (AUTO) 0.3 X10'3 (0-0.9); EOSINOPHILS % (AUTO) 5.2 % (0-6); HEMATOCRIT 37.8 % (35.0-45.0); HEMOGLOBIN 12.9 g/dl (12.0-16.0); LYMPHOCYTES # (AUTO) 1.7 X10'3 (1.1-4.8); LYMPHOCYTES % (AUTO) 33.6 % (21-51); MEAN CORPUSCULAR HGB CONC 34.2 g/dL (33.0-36.5); MEAN CORPUSCULAR VOLUME 93.6 FL (78-98); MEAN PLATELET VOLUME 9.1 FL (7.4-10.4); MONOCYTES # (AUTO) 0.4 X10'3 (0-0.9); NEUTROPHILS # (AUTO) 2.7 X10'3 (1.8-7.7); NEUTROPHILS % (AUTO) 52.6 % (42-75); PLATELET COUNT 245 X10'3 (140-440); RED BLOOD COUNT 4.04 X10'6 (4.20-5.60); RED CELL DISTRIBUTION WIDTH 13.5 % (11.5-14.5); WHITE BLOOD COUNT 5.2 X10'3 (4.5-11.0)
[2020-03-16] MEDS ORDERED: iohexol 350MG/ML 100ml bottle IV ONE (05:59)
[2020-03-16] MEDS ORDERED: heparin 1,000unit/ml 10ml vial 10 ML ONE (05:59)
[2020-03-16] MEDS ORDERED: LIDOcaine 1% (10mg/ml)w/preservative injection 20ml MDV ONE (05:59)
[2020-03-16] MEDS ORDERED: nitroGLYCERIN-Tridil 50MG/D5W 250 ML IV ONE (05:59)
[2020-03-16] MEDS ORDERED: fentaNYL/PF 50MCG/1 ML 2ML syringe ONE (05:59)
[2020-03-16] MEDS ORDERED: heparin 1,000 UNITS/NS 500ml 500 ML ONE ×2 (05:59)
[2020-03-16] MEDS ORDERED: verapamil 2.5 mg/ml inj IV ONE (05:59)
[2020-03-16] MEDS ORDERED: midazolam 2 mg/2 ml injection ONE (05:59)
--- NOTE | 2020-03-16 06:12 | NUR ---
Patient in room PCU 3012. I have received report from Ashlie HALE and had the opportunity to ask questions and assume patient care.
--- NOTE | 2020-03-16 06:15 | NUR ---
Problems reprioritized. Patient report given, questions answered & plan of care reviewed with Cheryl HALE. Patient went to asset availability leader with Nikki HALE and was stable at transfer of care. All current needs met at this time
[2020-03-16] MEDS ORDERED: HYDROcodone/acetaminophen 5mg/325mg tablet PO PRN (07:10)
[2020-03-16] MEDS ORDERED: ondansetron/PF 4mg/2ml inj IV PRN (07:10)
[2020-03-16] MEDS ORDERED: HYDROcodone/acetaminophen 10/325mg tab PO PRN (07:10)
[2020-03-16] MEDS ORDERED: proCHLORperazine 10 MG/2 ml inj IV PRN (07:10)
[2020-03-16] MEDS ORDERED: OXAZEpam 15mg capsule PO PRN (07:10)
[2020-03-16] MEDS: K and/or MAG REPLACEMENT MC SCH (08:04)
[2020-03-16] MEDS: losartan 50mg tablet PO SCH (08:07)
[2020-03-16] MEDS: pantoprazole 40mg Tablet.DR PO SCH (08:07)
[2020-03-16] MEDS: aspirin 81mg tablet.DR PO SCH (08:07)
[2020-03-16] MEDS: carVEDilol 3.125mg tablet PO SCH (08:07)
[2020-03-16] MEDS: amiodarone 200mg tablet PO SCH (08:07)
[2020-03-16] MEDS: levoTHYROXINE 100mcg tablet PO SCH (08:08)
[2020-03-16] MEDS: atorvastatin 10mg tablet PO SCH (08:08)
[2020-03-16] MEDS: clopidogrel 75mg tablet PO SCH (08:08)
[2020-03-16] MEDS ORDERED: ondansetron 4mg rapidly disintigrating tab PO PRN (14:22)
== END 2020-03-16 15:23 | disposition home or self-care (01) | DRG 287 ==
LOC: ER 15:10 → ED HOLD 20:06 → PCU 3S 21:45
PROVIDERS: ADMIT Internal Medicine; ATTEND Family Medicine
PROC: B32T1ZZ Computerized Tomography (CT Scan) of Left Pulmonary Artery using Low Osmolar Contrast (ICD-10-PCS; principal; 2020-03-14)
PROC: B3201ZZ Computerized Tomography (CT Scan) of Thoracic Aorta using Low Osmolar Contrast (ICD-10-PCS; 2020-03-14)
PROC: B32S1ZZ Computerized Tomography (CT Scan) of Right Pulmonary Artery using Low Osmolar Contrast (ICD-10-PCS; 2020-03-14)
PROC: 4A02XM4 Measurement of Cardiac Total Activity, External Approach (ICD-10-PCS; 2020-03-15)
PROC: 3E073KZ Introduction of Other Diagnostic Substance into Coronary Artery, Percutaneous Approach (ICD-10-PCS; 2020-03-15)
PROC: 4A023N7 Measurement of Cardiac Sampling and Pressure, Left Heart, Percutaneous Approach (ICD-10-PCS; 2020-03-16)
PROC: B2111ZZ Fluoroscopy of Multiple Coronary Arteries using Low Osmolar Contrast (ICD-10-PCS; 2020-03-16)
PROC: B2151ZZ Fluoroscopy of Left Heart using Low Osmolar Contrast (ICD-10-PCS; 2020-03-16)
DX: I25.10 Atherosclerotic heart disease of native coronary artery without angina pectoris (principal); R07.89 Other chest pain; E03.9 Hypothyroidism, unspecified; E11.9 Type 2 diabetes mellitus without complications; E78.00 Pure hypercholesterolemia, unspecified; E78.5 Hyperlipidemia, unspecified; G89.4 Chronic pain syndrome; I10 Essential (primary) hypertension; Z20.828 Contact with and (suspected) exposure to other viral communicable diseases; M79.601 Pain in right arm; J44.9 Chronic obstructive pulmonary disease, unspecified; M54.9 Dorsalgia, unspecified; I25.2 Old myocardial infarction; Z86.74 Personal history of sudden cardiac arrest; Z90.710 Acquired absence of both cervix and uterus; Z95.5 Presence of coronary angioplasty implant and graft; Z79.899 Other long term (current) drug therapy; Z79.82 Long term (current) use of aspirin; Z90.49 Acquired absence of other specified parts of digestive tract
CPT/HCPCS: 36415; 71045; 71270; 78452; 80048; 80053; 83036; 83735; 83880; 84484; 85025; 87081; 87635; 93005; 93017; 93306; 93458; 97116; 97161; 97530; 99152; 99153; 99285; A4620; A5120; A6258; A9500; C1751; C1769; C1894; G0378; J1644; J2001; J2250; J2785; J3010; J3490; J7030; Q9967

== ENCOUNTER 2021-03-08 16:23 | Inpatient (IN) | payer BC ==
[~2021-03-08] VITALS: Ht 162.6 cm; Wt 68.2 kg
[~2021-03-08 16:23] MED LIST changes: -ASPI-1265 PO; +ASPI81TA52 PO; -ATOR10TA PO; +CARV3.122 PO; +CLOP75TA15 PO; -COR3.125T PO; -LISI-642 PO; +SIMV10TA2 PO; -TICA90TA PO
[2021-03-08 18:30] LABS: BASOPHILS % (AUTO) 0.5 % (0-1); EOSINOPHILS # (AUTO) 0.1 X10'3 (0-0.9); EOSINOPHILS % (AUTO) 1.8 % (0-6); HEMATOCRIT 41.5 % (35.0-45.0); HEMOGLOBIN 14.3 g/dl (12.0-16.0); LYMPHOCYTES # (AUTO) 1.5 X10'3 (1.1-4.8); LYMPHOCYTES % (AUTO) 26.1 % (21-51); MEAN CORPUSCULAR HEMOGLOBIN 32.7 PG (27.0-31.0); MEAN CORPUSCULAR HGB CONC 34.4 g/dL (33.0-36.5); MEAN PLATELET VOLUME 8.9 FL (7.4-10.4); MONOCYTES # (AUTO) 0.4 X10'3 (0-0.9); MONOCYTES % (AUTO) 6.9 % (2-12); NEUTROPHILS # (AUTO) 3.7 X10'3 (1.8-7.7); NEUTROPHILS % (AUTO) 64.7 % (42-75); PLATELET COUNT 239 X10'3 (140-440); RED BLOOD COUNT 4.37 X10'6 (4.20-5.60); RED CELL DISTRIBUTION WIDTH 12.7 % (11.5-14.5); WHITE BLOOD COUNT 5.7 X10'3 (4.5-11.0)
[2021-03-08 18:45] LABS: ALANINE AMINOTRANSFERASE 43 U/L (12-78); ALBUMIN 4.1 G/DL (3.4-5.0); ALBUMIN/GLOBULIN RATIO 1.5 (1.1-1.5); ALKALINE PHOSPHATASE 70 IU/L (46-116); ANION GAP 7 (8-16); ASPARTATE AMINO TRANSFERASE 24 U/L (10-37); BILIRUBIN,TOTAL 0.3 MG/DL (0.1-1.0); BLOOD UREA NITROGEN 10 MG/DL (7-18); BUN/CREATININE RATIO 12.3 (6.6-38.0); CHLORIDE 108 MMOL/L (99-107); CREATININE 0.81 MG/DL (0.40-0.90); GLUCOSE 96 MG/DL (70-104); POTASSIUM 4.9 MMOL/L (3.5-5.1); SODIUM 145 MMOL/L (135-145); TOTAL CARBON DIOXIDE 29.9 MMOL/L (24-32); TOTAL PROTEIN 6.9 G/DL (6.4-8.2); eGFR 73 ML/MIN
[2021-03-08 18:52] LABS: MAGNESIUM 2.3 MG/DL (1.5-2.4)
[2021-03-08] MEDS ORDERED: temazepam 15mg capsule PO PRN (21:00)
[2021-03-08] MEDS ORDERED: acetaminophen 325mg tablet PO PRN (22:20)
[2021-03-08] MEDS ORDERED: magnesium 4gm in 100ml NS 100 ML IV PRN (22:20)
[2021-03-08] MEDS ORDERED: nitroGLYCERIN 0.4mg SUBLingual tab SL PRN (22:20)
[2021-03-08] MEDS ORDERED: ondansetron/PF 4mg/2ml inj IV PRN (22:20)
[2021-03-08] MEDS ORDERED: metoprolol tartrate 1mg/ml inj IV PRN (22:20)
[2021-03-08] MEDS ORDERED: magnesium 2GM in 50ml NS 50 ML IV PRN (22:20)
[2021-03-08] MEDS ORDERED: aspirin 325mg tablet PO ONE (22:20)
[2021-03-08] MEDS ORDERED: potassium Cl 40MEQ/1/2NS 520ml 520 ML IV PRN ×2 (22:20)
[2021-03-08] MEDS ORDERED: PERFLUTREN PROTEIN-A MICROSPHR (Optison) 0.22 MG/ML 3ML VIAL IV PRN (22:20)
[2021-03-08] MEDS ORDERED: potassium Cl 20 mEq SR tablet PO PRN ×2 (22:20)
[2021-03-08] MEDS ORDERED: HYDROcodone/acetaminophen 5mg/325mg tablet PO PRN (22:20)
[2021-03-08] MEDS ORDERED: magnesium Cl slow-release 64mg tablet PO PRN (22:20)
[2021-03-08] MEDS ORDERED: regadenoson 0.4mg/5ml syringe IV PRN (22:20)
[2021-03-08] MEDS ORDERED: aminophylline 250mg/10ml inj. IV PRN (22:20)
[2021-03-08] MEDS ORDERED: LIDO700A47 TOP (22:55)
[2021-03-08] MEDS ORDERED: OXYC1TAB17 PO (22:55)
[2021-03-08] MEDS ORDERED: CARV3.122 PO (22:55)
[2021-03-08] MEDS ORDERED: ROSU20TA31 PO (22:55)
[2021-03-08] MEDS ORDERED: CLOP75TA34 PO (22:55)
[2021-03-08] MEDS ORDERED: MORP-92 PO (22:55)
[2021-03-08] MEDS ORDERED: UMEC1DIS PO (22:55)
[2021-03-08] MEDS ORDERED: ALBU8HFA INH (22:55)
[2021-03-08] MEDS: normal saline 1000ml 1,000 ML IV SCH (23:12)
[2021-03-09] VITALS (13 sets, daily range): BP systolic 106–127; BP diastolic 55–77
[2021-03-09] MEDS ORDERED: LEVO100T9 PO (01:14)
[2021-03-09] MEDS ORDERED: LOSA100T57 PO (01:14)
[2021-03-09 02:06] LABS: D-DIMER < 0.19 MG/L FEU (0-0.50)
[2021-03-09] MEDS: morphine 2 MG/ML inj. syringe IV PRN ×2 (02:38→19:53)
--- NOTE | 2021-03-09 03:50 | NUR ---
received report from Felicia HALE in the ER. Pt arrived on the unit via gurney and was able to ambulate to her bed with a steady gait and no assistance. Pt was on room air with NS running at 100 mls/hr. Her clothes, cell phone and profiling machine operator accompanied her in a pt belongings bag. Pt had no signs of distress. Will continue to monitor.
[2021-03-09 06:15] LABS: BASOPHILS % (AUTO) 0.6 % (0-1); EOSINOPHILS # (AUTO) 0.2 X10'3 (0-0.9); EOSINOPHILS % (AUTO) 2.8 % (0-6); HEMOGLOBIN 13.1 g/dl (12.0-16.0); LYMPHOCYTES # (AUTO) 2.3 X10'3 (1.1-4.8); LYMPHOCYTES % (AUTO) 39.4 % (21-51); MEAN CORPUSCULAR HEMOGLOBIN 32.5 PG (27.0-31.0); MEAN CORPUSCULAR HGB CONC 34.3 g/dL (33.0-36.5); MEAN CORPUSCULAR VOLUME 94.7 FL (78-98); MEAN PLATELET VOLUME 9.2 FL (7.4-10.4); MONOCYTES # (AUTO) 0.4 X10'3 (0-0.9); MONOCYTES % (AUTO) 7.6 % (2-12); NEUTROPHILS # (AUTO) 2.9 X10'3 (1.8-7.7); NEUTROPHILS % (AUTO) 49.6 % (42-75); PLATELET COUNT 213 X10'3 (140-440); RED BLOOD COUNT 4.02 X10'6 (4.20-5.60); RED CELL DISTRIBUTION WIDTH 12.9 % (11.5-14.5); WHITE BLOOD COUNT 5.8 X10'3 (4.5-11.0)
[2021-03-09 06:21] LABS: ALANINE AMINOTRANSFERASE 38 U/L (12-78); ALBUMIN 3.3 G/DL (3.4-5.0); ALBUMIN/GLOBULIN RATIO 1.4 (1.1-1.5); ALKALINE PHOSPHATASE 55 IU/L (46-116); ANION GAP 10 (8-16); ASPARTATE AMINO TRANSFERASE 27 U/L (10-37); BILIRUBIN,TOTAL 0.3 MG/DL (0.1-1.0); BLOOD UREA NITROGEN 10 MG/DL (7-18); BUN/CREATININE RATIO 15.2 (6.6-38.0); CALCIUM 8.4 MG/DL (8.5-10.1); CHLORIDE 109 MMOL/L (99-107); CREATININE 0.66 MG/DL (0.40-0.90); GLUCOSE 94 MG/DL (70-104); POTASSIUM 3.7 MMOL/L (3.5-5.1); SODIUM 145 MMOL/L (135-145); TOTAL CARBON DIOXIDE 26.4 MMOL/L (24-32); TOTAL PROTEIN 5.7 G/DL (6.4-8.2); eGFR > 90 ML/MIN
[2021-03-09 06:24] LABS: CHOL/HDL RATIO 2.7 (0.00-4.99); CHOLESTEROL 118 MG/DL (0-200); HDL CHOLESTEROL 44 MG/DL (35-60); LDL CHOLESTEROL 63 MG/DL (50-100); MAGNESIUM 2.1 MG/DL (1.5-2.4); TRIGLYCERIDES 47 MG/DL (20-135)
--- NOTE | 2021-03-09 06:27 | NUR ---
Problems reprioritized. Patient report given, questions answered & plan of care reviewed with Sandra HALE.
--- NOTE | 2021-03-09 06:33 | NUR ---
Patient in room PCU 3027. I have received report from OUSMANE HALE and had the opportunity to ask questions and assume patient care.
[2021-03-09] MEDS ORDERED: albuterol 2.5 MG/3 ML nebule NEB PRN (06:35)
[2021-03-09] MEDS: pantoprazole 40mg Tablet.DR PO SCH (07:44)
[2021-03-09] MEDS: levoTHYROXINE 100mcg tablet PO SCH (07:44)
[2021-03-09] MEDS: atorvastatin 20mg tablet PO SCH (07:45)
[2021-03-09] MEDS: clopidogrel 75mg tablet PO SCH (07:45)
[2021-03-09] MEDS: acetaminophen 325mg tablet PO PRN (07:46)
[2021-03-09] MEDS: morphine ER 15mg tablet PO SCH (07:46)
[2021-03-09] MEDS: carVEDilol 3.125mg tablet PO SCH ×2 (08:00→20:00)
[2021-03-09] MEDS: losartan 50mg tablet PO SCH (08:00)
[2021-03-09] MEDS: VILANTEROL TR IH SCH (08:00)
[2021-03-09] MEDS: heparin, porcine 5000 units/ml vial SQ SCH ×2 (08:00→20:00)
[2021-03-09] MEDS: UMECLIDINIUM BRM IH SCH (08:00)
[2021-03-09] MEDS: K and/or MAG REPLACEMENT MC SCH ×2 (08:00→20:00)
--- NOTE | 2021-03-09 08:30 | NUR ---
pt was npo and could not have blood pressure meds due to kimberley scan. i will give when pt is back.
--- NOTE | 2021-03-09 10:54 | NUR ---
Page Sent PAGER ID: [phone] MESSAGE: [id number] Jhoana pt is unable to bring in ellipta their own medication. can it be discharged it needs to be discharged per pharmacy because it is a med error when not given. palmira [phone]
--- NOTE | 2021-03-09 12:21 | NUR ---
Page Sent PAGER ID: [phone] MESSAGE: [id number] Jhoana, pt was unable to take morning bp meds due to kimberley scans. I went to give and pt bp was 120/71 and hr 53. I held carvedilol and losartan.
--- NOTE | 2021-03-09 12:24 | NUR ---
Page Sent PAGER ID: [phone] MESSAGE: [id number] Jhoana, can pt have a diet ordered or does she still need to be npo ? palmira [phone]
[2021-03-09 13:16] LABS: LIPASE < 50 U/L (73-393)
--- NOTE | 2021-03-09 16:17 | NUR ---
Page Sent PAGER ID: [phone] MESSAGE: [id number] Jhoana, can pt have a diet yet? she has been npo all day and very hungry.
[2021-03-09] MEDS: oxyCODONE/APAP 10/325mg tablet PO PRN (16:26)
[2021-03-09] MEDS: normal saline 1000ml 1,000 ML IV SCH ×2 (16:26→18:20)
--- NOTE | 2021-03-09 17:05 | NUR ---
Page Sent PAGER ID: [phone] MESSAGE: [id number] Jhoana, pt lipase is <50 and ABD ultrasound impression as stated 10mm common duct due to post ryan changes. palmira [phone]
--- NOTE | 2021-03-09 18:30 | NUR ---
Patient in room U 3027. I have received report from ALEXIA TORIBIO and had the opportunity to ask questions and assume patient care. Addendum: 03/09/21 at 2041 by Wesley Macias RN Amended: Links added.
--- NOTE | 2021-03-09 18:30 | NUR ---
Problems reprioritized. Patient report given, questions answered & plan of care reviewed with bud magana.
[2021-03-10 00:30] VITALS: BP 111/69
[2021-03-10] MEDS: oxyCODONE/APAP 10/325mg tablet PO PRN (00:33)
[2021-03-10] MEDS: carVEDilol 3.125mg tablet PO SCH ×2 (00:34→06:57)
[2021-03-10 02:45] VITALS: BP 110/69
[2021-03-10] MEDS: acetaminophen 325mg tablet PO PRN (02:52)
[2021-03-10] MEDS: normal saline 1000ml 1,000 ML IV SCH (04:20)
[2021-03-10 06:00] VITALS: BP 112/64
[2021-03-10 06:02] LABS: BASOPHILS % (AUTO) 0.4 % (0-1); EOSINOPHILS # (AUTO) 0.2 X10'3 (0-0.9); EOSINOPHILS % (AUTO) 2.9 % (0-6); HEMATOCRIT 38.1 % (35.0-45.0); HEMOGLOBIN 12.8 g/dl (12.0-16.0); LYMPHOCYTES # (AUTO) 1.9 X10'3 (1.1-4.8); LYMPHOCYTES % (AUTO) 33.3 % (21-51); MEAN CORPUSCULAR HEMOGLOBIN 32.6 PG (27.0-31.0); MEAN CORPUSCULAR HGB CONC 33.7 g/dL (33.0-36.5); MEAN CORPUSCULAR VOLUME 96.8 FL (78-98); MEAN PLATELET VOLUME 9.5 FL (7.4-10.4); MONOCYTES # (AUTO) 0.5 X10'3 (0-0.9); MONOCYTES % (AUTO) 8.8 % (2-12); NEUTROPHILS # (AUTO) 3.1 X10'3 (1.8-7.7); NEUTROPHILS % (AUTO) 54.6 % (42-75); PLATELET COUNT 213 X10'3 (140-440); RED BLOOD COUNT 3.94 X10'6 (4.20-5.60); RED CELL DISTRIBUTION WIDTH 12.7 % (11.5-14.5); WHITE BLOOD COUNT 5.6 X10'3 (4.5-11.0)
--- NOTE | 2021-03-10 06:28 | NUR ---
Patient in room PCU 3027. I have received report from bud magana and had the opportunity to ask questions and assume patient care.
[2021-03-10 06:30] LABS: ALANINE AMINOTRANSFERASE 43 U/L (12-78); ALBUMIN 3.2 G/DL (3.4-5.0); ALBUMIN/GLOBULIN RATIO 1.4 (1.1-1.5); ALKALINE PHOSPHATASE 57 IU/L (46-116); ANION GAP 7 (8-16); ASPARTATE AMINO TRANSFERASE 27 U/L (10-37); BILIRUBIN,TOTAL 0.3 MG/DL (0.1-1.0); BLOOD UREA NITROGEN 16 MG/DL (7-18); CALCIUM 8.2 MG/DL (8.5-10.1); CHLORIDE 109 MMOL/L (99-107); CREATININE 0.84 MG/DL (0.40-0.90); GLUCOSE 88 MG/DL (70-104); SODIUM 143 MMOL/L (135-145); TOTAL CARBON DIOXIDE 27.1 MMOL/L (24-32); TOTAL PROTEIN 5.5 G/DL (6.4-8.2); eGFR 70 ML/MIN
--- NOTE | 2021-03-10 06:30 | NUR ---
Problems reprioritized. Patient report given, questions answered & plan of care reviewed with ALEXIA Topete. Addendum: 03/10/21 at 0631 by Wesley Macias RN Amended: Links added.
[2021-03-10] MEDS: levoTHYROXINE 100mcg tablet PO SCH (06:57)
[2021-03-10] MEDS: morphine ER 15mg tablet PO SCH (06:57)
[2021-03-10] MEDS: clopidogrel 75mg tablet PO SCH (06:57)
[2021-03-10] MEDS: pantoprazole 40mg Tablet.DR PO SCH (06:59)
[2021-03-10] MEDS: atorvastatin 20mg tablet PO SCH (07:02)
[2021-03-10] MEDS: VILANTEROL TR IH SCH (08:00)
[2021-03-10] MEDS: UMECLIDINIUM BRM IH SCH (08:00)
[2021-03-10] MEDS: heparin, porcine 5000 units/ml vial SQ SCH (08:00)
[2021-03-10] MEDS: losartan 50mg tablet PO SCH (08:00)
[2021-03-10] MEDS: K and/or MAG REPLACEMENT MC SCH (08:00)
[2021-03-10] MEDS ORDERED: PANT-47 PO (09:19)
[2021-03-10 10:00] VITALS: BP 127/75
--- NOTE | 2021-03-10 12:06 | NUR ---
pt iv was discontinued, all discharged info was given. pt signed a form to get her test results sent to her. she left in a provate vehicle with daughter
== END 2021-03-10 12:00 | disposition home or self-care (01) | DRG 313 ==
LOC: ER 16:23 → ED HOLD 22:23 → PCU 3S 03-09 03:53
PROVIDERS: ADMIT Internal Medicine; ATTEND Internal Medicine
PROC: 4A02XM4 Measurement of Cardiac Total Activity, External Approach (ICD-10-PCS; principal; 2021-03-08)
PROC: 3E073KZ Introduction of Other Diagnostic Substance into Coronary Artery, Percutaneous Approach (ICD-10-PCS; 2021-03-08)
DX: R07.89 Other chest pain (principal); E03.9 Hypothyroidism, unspecified; E78.00 Pure hypercholesterolemia, unspecified; E78.5 Hyperlipidemia, unspecified; M54.9 Dorsalgia, unspecified; G89.4 Chronic pain syndrome; I10 Essential (primary) hypertension; I25.10 Atherosclerotic heart disease of native coronary artery without angina pectoris; J44.9 Chronic obstructive pulmonary disease, unspecified; Z79.02 Long term (current) use of antithrombotics/antiplatelets; Z90.49 Acquired absence of other specified parts of digestive tract; I25.2 Old myocardial infarction; Z88.8 Allergy status to other drugs, medicaments and biological substances; Z98.61 Coronary angioplasty status; Z79.899 Other long term (current) drug therapy; Z79.890 Hormone replacement therapy
CPT/HCPCS: 36415; 71045; 72074; 76700; 78452; 80053; 80061; 83690; 83735; 83880; 84484; 85025; 85379; 87081; 93005; 93017; 93306; 99285; A9500; G0378; J2270; J7030